=== PATIENT | female | born 1930 | race Caucasian/White ===

== ENCOUNTER → 2017-07-17 | Outpatient (CLI) | payer MEDICARE ==
[~2017-07-17] MED LIST: GADOBUTROL 7.5 MMOL/7.5 ML VIAL ONE
== END | disposition home or self-care (01) ==
LOC: CFH 13:41
PROVIDERS: ATTEND Physician Assistant
DX: I67.82 Cerebral ischemia (principal); R90.82 White matter disease, unspecified; E78.2 Mixed hyperlipidemia; M19.90 Unspecified osteoarthritis, unspecified site; I10 Essential (primary) hypertension; M85.80 Other specified disorders of bone density and structure, unspecified site; F06.31 Mood disorder due to known physiological condition with depressive features
CPT/HCPCS: 70553; A9585

== ENCOUNTER → 2018-06-14 | Outpatient (CLI) | payer MEDICARE | END | disposition home or self-care (01) | LOC: CFH 08:42 | PROVIDERS: ATTEND Otolaryngology Facial Plastic Surgery | DX: J34.2 Deviated nasal septum (principal); J32.4 Chronic pansinusitis; I10 Essential (primary) hypertension; E78.00 Pure hypercholesterolemia, unspecified; E78.2 Mixed hyperlipidemia; R42 Dizziness and giddiness | CPT/HCPCS: 70486 ==

== ENCOUNTER 2019-04-25 10:28 | Emergency (ER) | payer MEDICARE ==
[~2019-04-25] VITALS: Ht 157.5 cm; Wt 52.1 kg
--- NOTE | 2019-04-25 11:20 | NUR ---
FROM LOBBY TO ROOM AT THIS TIME
--- NOTE | 2019-04-25 11:37 | NUR ---
Assumed care of patient. C/O multiple syncopal events including two this week (one today) C/O hematoma on left posterior head. A&Ox4. Takes 81mg ASA daily, denies other blood thinners. Placed on NIBP, pulse ox and engine monitor. Will continue to monitor.
[2019-04-25] MEDS ORDERED: SODIUM CHLORIDE FLUSH 10ML SYR IVF ONE (12:00)
[2019-04-25 12:10] LABS: BASOPHILS # (AUTO) 0.05 x10^3/uL (0-0.1); BASOPHILS % (AUTO) 1 % (0-1); EOSINOPHILS # (AUTO) 0.04 x10^3/uL (0-0.4); EOSINOPHILS % (AUTO) 1 % (1-7); LYMPHOCYTES # (AUTO) 0.98 x10^3/uL (1-3.4); LYMPHOCYTES % (AUTO) 14 % (22-44); MD NO; MEAN CORPUSCULAR HEMOGLOBIN 28.1 pg (27.0-34.8); MEAN CORPUSCULAR HGB CONC 32.7 g/dL (32.4-35.8); MEAN CORPUSCULAR VOLUME 85.8 fL (80-100); MEAN PLATELET VOLUME 8.1 fL (7.4-10.4); MONOCYTES # (AUTO) 0.38 x10^3/uL (0.2-0.8); MONOCYTES % (AUTO) 5 % (2-9); NEUTROPHILS # (AUTO) 5.66 x10^3/uL (1.8-6.8); NEUTROPHILS % (AUTO) 80 % (42-75); PLATELET COUNT 221 x10^3/uL (130-400); RED BLOOD COUNT 4.81 x10^6/uL (3.82-5.3); RED CELL DISTRIBUTION WIDTH 14.3 % (9.6-15.2)
[2019-04-25 12:20] LABS: ALBUMIN 4.1 g/dL (3.4-5.0); ANION GAP 8 mmol/L (5-15); CALCIUM 8.9 mg/dL (8.5-10.1); CHLORIDE 97 mmol/L (98-107); T4 (THYROXINE) 11.3 mcg/dL (4.8-13.9)
[2019-04-25 12:25] LABS: ALANINE AMINOTRANSFERASE 22 U/L (12-78); ALKALINE PHOSPHATASE 71 U/L (45-117); BILIRUBIN,TOTAL 0.7 mg/dL (0.2-1.0); CREATININE 0.64 mg/dL (0.55-1.02); TOTAL PROTEIN 7.3 g/dL (6.4-8.2); TROPONIN I < 0.015 ng/mL (0.000-0.045)
--- NOTE | 2019-04-25 12:45 | NUR ---
Patient expressing desire to leave. Patient does not want to be admitted. MD aware.
[2019-04-25 13:04] LABS: MICROSCOPIC NOT IND
[2019-04-25 13:11] LABS: CULTURE INDICATED? NO
[2019-04-25 13:42] VITALS: BP 158/82
--- NOTE | 2019-04-25 13:46 | NUR ---
Patient/Caregiver given discharge instructions and they have confirmed that they understand the instructions. Patient ambulatory with steady gait. Patient left AMA.
== END 2019-04-25 13:48 | disposition home or self-care (01) ==
LOC: ED 12:59
DX: S09.90XA Unspecified injury of head, initial encounter (principal); R55 Syncope and collapse; E87.1 Hypo-osmolality and hyponatremia; I10 Essential (primary) hypertension; Z87.891 Personal history of nicotine dependence; X58.XXXA Exposure to other specified factors, initial encounter; Y93.89 Activity, other specified; Y92.89 Other specified places as the place of occurrence of the external cause; Y99.8 Other external cause status
CPT/HCPCS: 36415; 70450; 71045; 80053; 81003; 83735; 84436; 84443; 84484; 85025; 93005; 99284

== ENCOUNTER 2019-06-17 10:02 | Outpatient (CLI) | payer MEDICARE | END 2019-06-17 23:59 | disposition home or self-care (01) | LOC: CFH 10:02 | PROVIDERS: ATTEND Internal Medicine Cardiovascular Disease | DX: I08.3 Combined rheumatic disorders of mitral, aortic and tricuspid valves (principal); I31.3 Pericardial effusion (noninflammatory); Z87.891 Personal history of nicotine dependence | CPT/HCPCS: 93306 ==

== ENCOUNTER → 2019-12-08 | Outpatient (CLI) | payer MEDICARE | END | disposition home or self-care (01) | LOC: CFH 10:49 | PROVIDERS: ATTEND Internal Medicine | DX: K40.90 Unilateral inguinal hernia, without obstruction or gangrene, not specified as recurrent (principal); I10 Essential (primary) hypertension; E78.2 Mixed hyperlipidemia; R10.9 Unspecified abdominal pain; Z90.710 Acquired absence of both cervix and uterus; Z90.89 Acquired absence of other organs | CPT/HCPCS: 74176 ==

== ENCOUNTER 2020-01-28 14:21 | Emergency (ER) | payer MEDICARE ==
[~2020-01-28] VITALS: Ht 160 cm; Wt 52.0 kg
[2020-01-28] MEDS ORDERED: ESTR1TAB15 PO (14:55)
[2020-01-28] MEDS ORDERED: PANT40TA5 PO (14:55)
--- NOTE | 2020-01-28 15:00 | NUR ---
PT TO RAD
[2020-01-28 15:08] VITALS: BP 141/59
--- NOTE | 2020-01-28 15:08 | NUR ---
PT RETURNED FROM CT, UPRIGHT ON GURNEY AWAKE & COMFORTABLE, RESPONDS APPROP TO STAFF, NAD, COMFORT MEASURES PROVIDED, CALL LIGHT WITHIN REACH.
[2020-01-28 15:21] LABS: BASOPHILS % (AUTO) 0 % (0-1); EOSINOPHILS % (AUTO) 0 % (1-7); LYMPHOCYTES # (AUTO) 0.45 x10^3/uL (1-3.4); LYMPHOCYTES % (AUTO) 3 % (22-44); MD NO; MEAN CORPUSCULAR HEMOGLOBIN 27.6 pg (27.0-34.8); MEAN CORPUSCULAR VOLUME 83.8 fL (80-100); MEAN PLATELET VOLUME 8.4 fL (7.4-10.4); MONOCYTES # (AUTO) 0.53 x10^3/uL (0.2-0.8); MONOCYTES % (AUTO) 3 % (2-9); NEUTROPHILS # (AUTO) 15.88 x10^3/uL (1.8-6.8); NEUTROPHILS % (AUTO) 94 % (42-75); PLATELET COUNT 242 x10^3/uL (130-400); RED BLOOD COUNT 4.92 x10^6/uL (3.82-5.3); RED CELL DISTRIBUTION WIDTH 14.7 % (9.6-15.2)
[2020-01-28 15:29] LABS: INTERNATIONAL NORMALIZED RATIO 0.94 (0.93-1.1)
[2020-01-28 15:30] LABS: ANION GAP 7 mmol/L (5-15); CALCIUM 8.9 mg/dL (8.5-10.1); CHLORIDE 102 mmol/L (98-107); CREATININE 0.96 mg/dL (0.55-1.02)
[2020-01-28 15:31] LABS: ALBUMIN 3.8 g/dL (3.4-5.0)
== END 2020-01-28 17:16 | disposition home or self-care (01) ==
LOC: ED 16:55
DX: K64.8 Other hemorrhoids (principal); K60.0 Acute anal fissure; D72.829 Elevated white blood cell count, unspecified; I10 Essential (primary) hypertension; M19.90 Unspecified osteoarthritis, unspecified site; Z87.891 Personal history of nicotine dependence
CPT/HCPCS: 36415; 74021; 80048; 82040; 85025; 85610; 99284